=== PATIENT | male | born 1955 | race Caucasian/White ===

== ENCOUNTER 2017-03-13 10:29 | Emergency (ER) | payer OTHER ==
[~2017-03-13] VITALS: Ht 182.9 cm; Wt 106.8 kg
[~2017-03-13 10:29] MED LIST: AMLO10TA3 PO; ASPI-973 PO; ATOR10TA66 PO; CHOL100043 PO; CIPR-231 PO; CLIN-78 PO; DOXY100C2 PO; FLUO20CA25 PO; FUR20 PO; FURO40TA4 PO; LOSA100T29 PO; METO25TA6 PO; OMEP20CA11 PO; ONDA4TAB9 PO; TAMS0.4C98 PO; insulin pump
[2017-03-13 11:01] VITALS: BP 162/84; PULSE 107; RESP 15; O2SAT 99
[2017-03-13 11:47] LABS: BASOPHILS % (AUTO) 0.2 % (0-3); EOSINOPHILS % (AUTO) 0.5 % (0-5); MONOCYTES % (AUTO) 12.5 % (4-12); Mean Corpuscular Hemoglobin 29.1 pg (27.0-35.0); Mean Corpuscular Volume 85.7 fL (81-100); NEUTROPHILS % (AUTO) 79.2 % (40-74); Platelet Count 261 bil/L (150-400)
--- NOTE | 2017-03-13 12:08 | ED.REPORT ---
HPI-Abd Pain M 40 and Over Date of Service Mar 13, 2017 ED Provider: Brian Clancy PA-C Lupe 62-year-old male with history of diabetes who presents with a chief complaint of diarrhea. He states that he has had watery diarrhea 5-6 times a day without blood or mucus for approximately 5 days. Associated with vomiting which the patient describes as aching and is typically associated with foul smells. He also reports that his blood sugars have been very unstable. These are typically treated with his insulin pump. He also admits occasional dark red blood at the end of his urine stream. Denies fever, chills, malaise, abdominal pain, chest pain, dyspnea, dysuria, frequency or urgency. He was seen in this department 3 days ago and treated for dehydration, CT revealed a small nonobstructing kidney stone. Rug Cleaner Helper at the [facility] advised him to present to the emergency department, requesting C. difficile and stool cultures. Denies history of smoking. Admits a history of colon cancer treated with a right colectomy in 2006. Nursing Notes Stated Complaint: VOMITING/ DIARRHEA Chief Complaint: Male Abdominal Pain Nursing Notes Reviewed: Yes Allergies: Coded Allergies: pseudoephedrine HCl (Verified Allergy, Unknown, hallucinations, 11/17/16) sulfamethoxazole (Verified Adverse Reaction, Intermediate, increased potassium, 11/17/16) trimethoprim (Verified Adverse Reaction, Intermediate, increased potassium , 11/17/16) Scheduled Amlodipine (Amlodipine) 10 Mg Tablet 10 MG PO HS Aspirin (Aspirin) 81 Mg Tablet 162 MG PO DAILY Atorvastatin Calcium (Atorvastatin Calcium) 10 Mg Tablet 10 MG PO HS Cholecalciferol (Vitamin D3) (Vitamin D) 1,000 Unit Tablet 2,000 UNIT PO DAILY Ciprofloxacin (Cipro) 500 Mg Tablet 500 MG PO BID Clindamycin (Clindamycin) 300 Mg Capsule 300 MG PO QID Clindamycin (Clindamycin) 300 Mg Capsule 300 MG PO QID Doxycycline Hyclate (Doxycycline Hyclate) 100 Mg Capsule 100 MG PO BID Fluoxetine (Fluoxetine) 20 Mg Capsule 40 MG PO DAILY Furosemide (Furosemide) 40 Mg Tablet 60 MG PO MORNING Furosemide (Furosemide) 20 Mg Tab 20 MG PO HS Losartan Potassium (Losartan Potassium) 100 Mg Tablet 100 MG PO HS Metoprolol Tartrate (Metoprolol Tartrate) 25 Mg Tablet 75 MG PO BID Omeprazole (Omeprazole) 20 Mg Capsule.dr 20 MG PO DAILY Tamsulosin (Flomax) 0.4 Mg Capsule 0.4 MG PO HS Scheduled PRN Ondansetron ODT (Zofran ODT) 4 Mg Tablet 4 MG PO Q4H PRN PRN For Nausea Miscellaneous Medications ([insulin pump]) General Time Seen by MD: 11:45 Chief Complaint Diarrhea severe Sudden in Onset?: No Past Medical History Past Medical History Notes: [facility] Past Medical History Colon Cancer in 2006 with Chemo Insulin Dependent Diabetic Osteomyelitis of left foot s/p partial resection [place] 2007 s/p stenting CHF Depression Peripheral neuropathy Past Surgical History Colectomy MTP Joint Resection Left Foot Cardiac stent Family History MGM- DMII Mother - Colon [place]. Father - "small brain anuerysms." Smoking History Never Smoker Social History Lives with . Alcohol Use: "Social" Drug Use: Denies drug use Ambulatory Status Independent Review of Systems Review of Systems Note: Negative unless stated otherwise in history of present illness Physical Exam General: Well appearing, well developed, well nourished, no acute distress. Head: Atraumatic, normocephalic. Eyes: No scleral icterus or injection. No discharge. Vision grossly intact. ENT: Voice clear, hearing grossly intact. Respiratory: Regular rate and rhythm. Breath sounds present, clear to auscultation and equal bilaterally. No respiratory distress. No increased work of breathing, speaks in complete sentences. Cardiovascular: Regular rate and rhythm, without murmur, gallop or rub. No pedal edema. Gastrointestinal: Abdomen flat with mild right lower quadrant tenderness without guarding or rebound. Bowel sounds normoactive. Skin: Warm and dry. Neurological: Grossly nonfocal. Psychological: Alert and oriented. Speech appropriate, linear and logical. Behavior appropriate. Initial Vital Signs Vital Signs (First) Date Time Temp Pulse Resp B/P Pulse Ox O2 Delivery O2 Flow Rate FiO2 03/13/17 11:01 37.3 107 15 162/84 99 Room Air Interpretation & Diagnostics Lab Results Interpretation Result Diagram: 03/13/17 1140 03/13/17 1140 Test 03/13/17 11:40 03/13/17 11:55 White Blood Count 5.9th/mm3 (3.8-10.1) Red Blood Count 4.12mil/mm3 (4.40-5.80) Hemoglobin 12.0g/dL (13.8-17.2) Hematocrit 35.3% (41.0-50.0) Mean Corpuscular Volume 85.7fL (81-100) Mean Corpuscular Hemoglobin 29.1pg (27.0-35.0) Mean Corpuscular Hemoglobin Concent 34.0% (32.0-37.0) Red Cell Distribution Width 12.4% (12.3-15.4) Platelet Count 261bil/L (150-400) Neutrophils (%) (Auto) 79.2% (40-74) Lymphocytes (%) (Auto) 7.4% (14-46) Monocytes (%) (Auto) 12.5% (4-12) Eosinophils (%) (Auto) 0.5% (0-5) Basophils (%) (Auto) 0.2% (0-3) Sodium Level 120mEq/L (134-144) Potassium Level 4.3mEq/L (3.5-5.2) Chloride Level 89mEq/L (97-108) Carbon Dioxide Level 14mmol/L (18-29) Blood Urea Nitrogen 44mg/dL (8-27) Creatinine 2.94mg/dL (0.76-1.27) Estimat Glomerular Filtration Rate 23mL/min (>59) Glucose Level 718mg/dL (60-99) Osmolality 310 (275-300) Calcium Level 8.8mg/dL (8.5-10.1) Magnesium Level 1.7mg/dL (1.6-2.6) Total Bilirubin 0.4mg/dL (0.0-1.2) Aspartate Amino Transf (AST/SGOT) 16U/L (0-50) Alanine Aminotransferase (ALT/SGPT) 16U/L (0-44) Alkaline Phosphatase 95U/L (25-160) Total Protein 6.8g/dL (6.4-8.4) Albumin 3.2g/dL (3.4-5.0) Lipase 45U/L (13-60) Hold Wynn Top Tube Received (Received) Ketones Negative (Negative) Urine Color Straw (YELLOW) Urine Appearance Hazy (CLEAR,HAZY) Urine pH 5.5 (5.0-8.0) Urine Specific [place] 1.010 (1.003-1.035) Urine Protein 100mg/dL (NEG,TRACE) Urine Glucose (UA) >1000mg/dL (NEGATIVE) Urine Ketones Negativemg/dL (NEGATIVE) Urine Occult Blood Moderate (NEGATIVE) Urine Nitrite Negative (NEGATIVE) Urine Bilirubin Negative (NEGATIVE) Urine Urobilinogen Normalmg/dL (NORMAL) Urine Leukocyte Esterase Negative (NEGATIVE) Urine RBC 0-2/hpf (0-2) Urine WBC 0-5/hpf (0-5) Urine Epithelial Cells Occasional/hpf (NONE-MOD) Urine Crystals None seen (NONE SEEN) Urine Bacteria None/hpf (NONE-FEW) Urine Hyaline Casts None/lpf (NONE) Urine Granular Casts Occasional (NONE SEEN) Urine Waxy Casts None seen (NONE SEEN) Urine Red Blood Cell Casts None seen (NONE SEEN) Urine White Blood Cell Casts None seen (NONE SEEN) Urine Mucus None seen (None Seen) Urine Trichomonas None seen (NONE SEEN) Urine Yeast None (NONE SEEN) Urinalysis Comment None Urine Culture Reflexed Not indicated Lab Results Interpretation: Estimate GFR 23 which is down from previous estimates in the low 30s. Re-Eval/Medical Decision Med Decision/Clinical Course I discussed this case with Dr. Ramirez who met with and examined the patient. 62-year-old male with a history of left colectomy presents with a chief complaint of watery diarrhea for approximately 5 days. Seen in this department 3 days ago treated for dehydration. Also complains of variable blood sugars. Admits to episodes of dark red blood in his urine, noticed primarily as his stream diminishes. Denies pain Physical examination is reassuring with only mild right lower quadrant tenderness without guarding or rebound. CBC reveals a mild anemia. CMP reveals a critical high glucose of 718 along with elevated creatinine and BUN and estimated GFR is 23. Sodium is low at 120 though corrects to 132 when considering hyperglycemia. Albumin slightly low at 3.2. Ketones are negative. Osmolality is 310. Urinalysis is normal. Stool PCR reveals Campylobacter jejuni infection. CT KUB taken 3 days ago showed a nonobstructing kidney stone. Patient responds well to 1 L of normal saline as well as boluses of insulin from his pump, which over the course of his stay lower his blood glucose level down into the 200s. Patient feels well and wishes to be discharged home. At this point we are reassured regarding HHS, DKA, C. difficile, appendicitis, cholecystitis, pancreatitis. I believe his diarrhea is caused by Campylobacter infection and that he is stable and safe to be discharged home. Provided primary care follow-up instructions as well as emergent return precautions. patient verbalizes understanding and agreement to the plan. Discharge & Departure Primary Impression: Campylobacter diarrhea Additional Impressions: Dehydration Hematuria Acute kidney injury (nontraumatic) Diabetic keto-acidosis HHNC (hyperglycemic hyperosmolar nonketotic coma) Disposition: Home Vital Signs - All Vital Signs Date Time Temp Pulse Resp B/P Pulse Ox O2 Delivery O2 Flow Rate FiO2 03/13/17 16:49 37.2 112 18 143/56 99 Room Air 03/13/17 16:41 37.2 112 18 143/56 99 Room Air 03/13/17 13:59 36.8 100 18 157/73 98 Room Air 03/13/17 11:01 37.3 107 15 162/84 99 Room Air )( All Prior VS Reviewed: Yes Condition: Stable Additional Instructions: Evaluation in the emergency department for diarrhea. History and physical examination are reassuring this is unlikely due to a dangerous condition. Stool cultures indicate infection with Campylobacter jejuni. This should resolve on its own without treatment in a few days. Rest and drink plenty of fluids until your symptoms resolve. Follow up with her primary care provider Not resolved in 4 days. We noted severe hyperglycemia on initial labs. These have responded well to hydration and insulin. At this point we believe you are stable and safe to be discharged home. Please monitor your glucose closely for the next several days and follow up with your primary care provider as soon as possible. Kidney function appears slightly worse than your previous visit. Please follow- up with your recyclable materials collector at the [facility] regarding this. You report a history of painless hematuria. CT scan from your previous visit does not indicate a cause, and urinalysis does not indicate infection. Please address this with your provider at the [facility]. Return to emergency department for any new or worsening symptoms including increasing pain, fever. Referrals: [facility] (PCP) EDSupervising Provider for APC: Wilmer Lazar MD Attending Statement Discussed patient with REYNA Clancy. Was asked to evaluate patient. I evaluated patient independently and agree with plan as above. In brief 62-year-old male presenting with nausea vomiting diarrhea. His labs show sodium of 120 corrected 132. Blood sugar was 700 on arrival. Negative ketones. Osmoles 310. Bicarbonate is 14. Patient felt much better after fluid hydration and insulin. He did not want to be admitted to the hospital. He requests to go home. He will be given a prescription for antiemetics and antidiarrheals with return precautions. copies to: [facility] Brina Clancy PA-C Mar 13, 2017 12:08 Wilmer Lazar MD Mar 13, 2017 15:53
[2017-03-13 12:13] LABS: Magnesium 1.7 mg/dL (1.6-2.6)
[2017-03-13] MEDS ORDERED: 0.9% Sodium Chloride 1,000 ML IV ONE (12:15)
[2017-03-13 12:16] LABS: APPEARANCE,URINE HAZY (CLEAR,HAZY); COLOR,URINE STRAW (YELLOW); OCCULT BLOOD,URINE MODERATE (NEGATIVE); PH,URINE 5.5 (5.0-8.0); UROBILINOGEN,URINE NORMAL (NORMAL)
[2017-03-13 13:59] VITALS: BP 157/73; PULSE 100; RESP 18; O2SAT 98
[2017-03-13 16:41] VITALS: BP 143/56; PULSE 112; RESP 18; O2SAT 99
[2017-03-13 16:49] VITALS: BP 143/56; PULSE 112; RESP 18; O2SAT 99
== END 2017-03-13 16:50 | disposition home or self-care (01) ==
LOC: SED 10:29
DX: A04.5 Campylobacter enteritis (principal); E86.0 Dehydration; E11.29 Type 2 diabetes mellitus with other diabetic kidney complication; E11.00 Type 2 diabetes mellitus with hyperosmolarity without nonketotic hyperglycemic-hyperosmolar coma (NKHHC); R31.9 Hematuria, unspecified; I50.9 Heart failure, unspecified; Z79.82 Long term (current) use of aspirin; Z95.5 Presence of coronary angioplasty implant and graft; Z88.2 Allergy status to sulfonamides; Z88.8 Allergy status to other drugs, medicaments and biological substances
CPT/HCPCS: 80053; 81000; 82009; 82948; 83690; 83735; 83930; 85025; 87507; 96360; 99284; J7030

== ENCOUNTER 2017-03-22 19:02 | Emergency (ER) | payer OTHER ==
[~2017-03-22] VITALS: Ht 182.9 cm; Wt 106.8 kg
[2017-03-22 19:06] VITALS: BP 145/74; PULSE 94; RESP 16; O2SAT 97
--- NOTE | 2017-03-22 19:15 | ED.REPORT ---
HPI-General Illness Date of Service Mar 22, 2017 ED Provider: Shakir Hsu MD Patient is a 62 year old male with a medical history including type 2 diabetes, CHF, [place], and peripheral neuropathy who presents to the ED with an "intense" right-sided headache onset gradually today. The headache is described as "pressure," exacerbated with standing up and lasting for approximately an hour. The patient denies nausea, vomiting, vision change, facial droop, slurred speech , weakness, numbness, or other symptoms. The patient does report a brief episode of vision change two months ago, described as "double vision in one eye. " He reports that this episode lasted "a couple minutes" and completely resolved. The patient is concerned because his mother had an aneurysm. He measured his blood sugar at 62 just after the headache but otherwise denies recent hypoglycemic episodes. The patient has never had similar symptoms in the past. He was seen in the ED approximately one week ago complaining of diarrhea and was diagnosed with Campylobacter jejuni. This is not worse BARRY of life. His symptoms have since resolved without antibiotics. Nursing Notes Stated Complaint: DOUBLE VISION, HEADACHE, DIABETIC Chief Complaint: General Complaint Nursing Notes Reviewed: Yes Allergies: Coded Allergies: pseudoephedrine HCl (Verified Allergy, Unknown, hallucinations, 03/22/17) sulfamethoxazole (Verified Adverse Reaction, Intermediate, increased potassium, 03/22/17) trimethoprim (Verified Adverse Reaction, Intermediate, increased potassium , 03/22/17) Scheduled Amlodipine (Amlodipine) 10 Mg Tablet 10 MG PO HS Aspirin (Aspirin) 81 Mg Tablet 162 MG PO DAILY Atorvastatin Calcium (Atorvastatin Calcium) 10 Mg Tablet 10 MG PO HS Cholecalciferol (Vitamin D3) (Vitamin D) 1,000 Unit Tablet 2,000 UNIT PO DAILY Ciprofloxacin (Cipro) 500 Mg Tablet 500 MG PO BID Clindamycin (Clindamycin) 300 Mg Capsule 300 MG PO QID Clindamycin (Clindamycin) 300 Mg Capsule 300 MG PO QID Doxycycline Hyclate (Doxycycline Hyclate) 100 Mg Capsule 100 MG PO BID Fluoxetine (Fluoxetine) 20 Mg Capsule 40 MG PO DAILY Furosemide (Furosemide) 40 Mg Tablet 60 MG PO MORNING Furosemide (Furosemide) 20 Mg Tab 20 MG PO HS Losartan Potassium (Losartan Potassium) 100 Mg Tablet 100 MG PO HS Metoprolol Tartrate (Metoprolol Tartrate) 25 Mg Tablet 75 MG PO BID Omeprazole (Omeprazole) 20 Mg Capsule.dr 20 MG PO DAILY Tamsulosin (Flomax) 0.4 Mg Capsule 0.4 MG PO HS Scheduled PRN Ondansetron ODT (Zofran ODT) 4 Mg Tablet 4 MG PO Q4H PRN PRN For Nausea Miscellaneous Medications ([insulin pump]) General Time Seen by MD: 19:12 Chief Complaint Headache Hx Obtained From: Patient Arrived By: Walk-in Sudden in Onset?: Yes Onset Occurred: 5 - 8 hours ago Symptom Duration: 1 - 4 hours Location: : Head Quality: Painful Severity: Current: No pain currently Severity: Maximum: Moderate Exacerbated by: Standing up Context Related History: Reports Diabetes mellitus Recent Healthcare: Recent doctor visit Similar Sx Previous: No Past Medical History Past Medical History Notes: [facility] Past Medical History Colon Cancer in 2006 with Chemo Insulin Dependent Diabetic Osteomyelitis of left foot s/p partial resection [place] 2007 s/p stenting CHF Depression Peripheral neuropathy Past Surgical History Colectomy MTP Joint Resection Left Foot Cardiac stent Family History MGM- DMII Mother - Colon [place]. Father - "small brain anuerysms." Smoking History Never Smoker Social History Lives with . Alcohol Use: "Social" Drug Use: Denies drug use Ambulatory Status Independent Review of Systems - Facial droop + Brief episode of vision change two months ago - described as "double vision in one eye." Full Review of Systems Constitutional: Denies: Fever Respiratory: Denies: Non-productive cough, Shortness of breath GI: Denies: Nausea, Vomiting Neurologic: Reports: Headache (Right-sided), Denies: Numbness, Slurred speech, Vision change, Weakness Complete sys rev & neg: except as marked. Physical Exam Vital Signs Vital Signs Date Time Temp Pulse Resp B/P Pulse Ox O2 Delivery O2 Flow Rate FiO2 03/22/17 22:16 81 24 149/74 97 Room Air 03/22/17 19:06 36.5 94 16 145/74 97 Room Air Initial VS: Reviewed Skin: Warm, Dry, No cyanosis Psychiatric: Mood/affect normal, Behavior normal, Normal thought content General/Constitutional: Awake, Alert, No acute distress Head / Eyes: Atraumatic, Normocephalic, Visual acuity NL ENT: Airway patent, Mucous membranes moist Neck: Supple, No meningismus, Full range of motion Respiratory / Chest: Breath sounds NL, Breath sounds = bilat, No respiratory distress Cardiovascular: Heart rate NL, Regular rhythm, Heart sounds NL, No gallop, No murmurs, No rubs Abdomen: Soft, Non-tender, No distention Neurologic: Oriented X3, Speech NL, No motor deficits (5/5 strength all four extremities ), No sensory deficits, CN II - XII intact Focal Weakness: Negative: Pronator drift L, Pronator drift R Cerebellar Dysfunction: Negative: Finger-nose abnl No facial droop Negative Romberg's test Interpretation & Diagnostics URINE DIPSTICK: Bedside Urine Specific [place] * 1.015 Bedside Urine pH * 5 Bedside Urine Leukocyte Esterase * Negative Bedside Urine Nitrite * Negative Bedside Urine Protein * +++ (500) Bedside Urine Glucose * 100mg/dl Bedside Urine Ketones * Negative Bedside Urine Urobilinogen * Normal Bedside Urine Bilirubin * Negative Bedside Urine Occult Blood * ~ 250 Clifford/ml Urine to Lab * Yes Lab Results Interpretation Result Diagram: 03/22/17191403/22/171914 Test 03/22/17 19:15 White Blood Count 11.3th/mm3 (3.8-10.1) Red Blood Count 4.14mil/mm3 (4.40-5.80) Hemoglobin 12.0g/dL (13.8-17.2) Hematocrit 35.1% (41.0-50.0) Mean Corpuscular Volume 84.8fL (81-100) Mean Corpuscular Hemoglobin 29.0pg (27.0-35.0) Mean Corpuscular Hemoglobin Concent 34.2% (32.0-37.0) Red Cell Distribution Width 12.5% (12.3-15.4) Platelet Count 415bil/L (150-400) Neutrophils (%) (Auto) 72.8% (40-74) Lymphocytes (%) (Auto) 13.4% (14-46) Monocytes (%) (Auto) 8.5% (4-12) Eosinophils (%) (Auto) 4.2% (0-5) Basophils (%) (Auto) 0.4% (0-3) Prothrombin Time 10.8sec (8.1-12.5) Prothromb Time International Ratio 1.01ratio Urine Color Yellow (YELLOW) Urine Appearance Clear (CLEAR,HAZY) Urine pH 5.5 (5.0-8.0) Urine Specific [place] 1.025 (1.003-1.035) Urine Protein 300mg/dL (NEG,TRACE) Urine Glucose (UA) 100mg/dL (NEGATIVE) Urine Ketones Negativemg/dL (NEGATIVE) Urine Occult Blood Small (NEGATIVE) Urine Nitrite Negative (NEGATIVE) Urine Bilirubin Negative (NEGATIVE) Urine Urobilinogen Normalmg/dL (NORMAL) Urine Leukocyte Esterase Negative (NEGATIVE) Urine RBC 0-2/hpf (0-2) Urine WBC 0-5/hpf (0-5) Urine Epithelial Cells Few/hpf (NONE-MOD) Urine Crystals None seen (NONE SEEN) Urine Bacteria Few/hpf (NONE-FEW) Urine Hyaline Casts None/lpf (NONE) Urine Granular Casts None seen (NONE SEEN) Urine Waxy Casts None seen (NONE SEEN) Urine Red Blood Cell Casts None seen (NONE SEEN) Urine White Blood Cell Casts None seen (NONE SEEN) Urine Mucus None seen (None Seen) Urine Trichomonas None seen (NONE SEEN) Urine Yeast None (NONE SEEN) Urinalysis Comment None Urine Culture Reflexed Not indicated Sodium Level 136mEq/L (134-144) Potassium Level 3.3mEq/L (3.5-5.2) Chloride Level 98mEq/L (97-108) Carbon Dioxide Level 21mmol/L (18-29) Blood Urea Nitrogen 35mg/dL (8-27) Creatinine 1.95mg/dL (0.76-1.27) Estimat Glomerular Filtration Rate 37mL/min (>59) Glucose Level 92mg/dL (60-99) Calcium Level 9.2mg/dL (8.5-10.1) Magnesium Level 1.5mg/dL (1.6-2.6) Total Bilirubin 0.4mg/dL (0.0-1.2) Aspartate Amino Transf (AST/SGOT) 20U/L (0-50) Alanine Aminotransferase (ALT/SGPT) 22U/L (0-44) Alkaline Phosphatase 115U/L (25-160) Total Protein 7.3g/dL (6.4-8.4) Albumin 3.8g/dL (3.4-5.0) Lipase 45U/L (13-60) Hold Wynn Top Tube Received (Received) CT Head Interpretation IMPRESSION: Mild ethmoid air cell mucosal thickening, right greater than left, no additional source of potential cause of headache is found. Dictated by: Liborio Metzger M.D. on 03/22/2017 at 21:32 Study: Head CT no contrast Interpretation / Wet Read by: Interpret - Radiologist Re-Eval/Medical Decision Med Decision/Clinical Course Patient is a 62 year old male with a medical history including type 2 diabetes, CHF, [place], and peripheral neuropathy who presents to the ED with an "intense" right-sided headache onset gradually today. The headache is described as "pressure," exacerbated with standing up and lasting for approximately an hour. The patient denies nausea, vomiting, vision change, facial droop, slurred speech , weakness, numbness, or other symptoms. The patient does report a brief episode of vision change two months ago, described as "double vision in one eye. " He reports that this episode lasted "a couple minutes" and completely resolved. The patient is concerned because his mother had an aneurysm. He measured his blood sugar at 62 just after the headache but otherwise denies recent hypoglycemic episodes. The patient has never had similar symptoms in the past. He was seen in the ED approximately one week ago complaining of diarrhea and was diagnosed with Campylobacter jejuni. This is not worse BARRY of life. His symptoms have since resolved without antibiotics. Here in the emergency department the patient is afebrile with stable vital signs and in no apparent distress. His neurologic examination is completely unremarkable without any focal findings. LABS: Leukocytosis 11.3 Hematocrit stable at 35.1 Coagulation studies normal BUN 35 Creatinine 1.95 - significantly improved from one week ago Mild hypokalemia with potassium at 3.3 CT head: Mild ethmoid air cell mucosal thickening, right greater than left, no additional source of potential cause of headache is found. Headache not suggestive of presentation of acute intracranial hemorrhage. He has had no trauma. Initial imaging studies are negative. He is headache free upon arrival and remained headache free here in the emergency room. I did consider subarachnoid and discussed with the patient that this could not be definitively ruled out without lumbar puncture. Patient reports feeling reassured by head CT scan and after a discussion of the risks and benefits the patient declines lumbar puncture. He makes an informed decision. I am unconvinced this is reflective of meningitis as he has had no fever and is without meningismus. Cause of the patient's headache remains unclear. I suspect this was tension or migraine-type headache. Discussed return precautions for worsening headache, thunderclap headache, headache associated with neurologic symptoms or any other concerning signs or symptoms. He will follow up with his primary care physician. Also discussed his portal and renal function which is improved from prior. He will follow-up with his primary care doctor for ongoing survey of his kidney function. Prior to discharge follow-up and return precautions were reviewed in detail with the patient who verbalized understanding and agreement with the plan. The patient was discharged in stable condition. Source of Hx: Old records Time of Eval: 21:50 Patient Status: Condition improved Re-Evaluation/Progress Note: Discussed with patient CT and lab results, diagnosis, and plan for discharge. Follow-up and return to the ER instructions given. Patient agrees with plan for care and all questions were addressed. Counseled Regarding: Diagnosis, Lab results, Need for follow-up, When/why to return to ED Discharge & Departure Primary Impression: Headache Headache type: unspecified Headache chronicity pattern: acute headache Intractability: not intractable Qualified Code: R51 - Headache Additional Impressions: Double vision Acute kidney injury Disposition: Home Discharge Condition All VS Reviewed: Yes Condition: Improved Patient Instructions: Acute Headache (ED) Additional Instructions: Thank you for seeking care at the emergency room. You were evaluated today for a headache. Our primary goal today in the ED was to evaluate you for any life-threatening conditions. Your evaluation was reassuring. You should follow-up with your primary doctor in the next week about your kidney function. You should return to the ED immediately if you develop severe headache, recurrent headache, weakness, numbness, blurred vision, fevers, vomiting, cough , shortness of breath, chest pain, lightheadedness, weakness or any other concerning signs or symptoms. Thank you for letting us partake in your care today. [facility] Lisaibvince Attestation Portions of this note were transcribed by Marika Haque. I, Dr. Hsu, personally performed the history, physical exam, and medical decision-making; I reviewed and confirmed the accuracy of the information in the transcribed note. Signed by: Citlaly Thorpe, 03/22/2017, 23:05 copies to: [facility] Shakir Hsu MD Mar 22, 2017 19:15 MARIKA HAQUE Apr 22, 2017 20:39
[2017-03-22] MEDS ORDERED: 0.9% Sodium Chloride 1,000 ML IV ONE (19:16)
[2017-03-22] MEDS ORDERED: Ondansetron 2 mg/mL 2 mL Inj IVPUSH ONE (19:20)
[2017-03-22 19:31] LABS: BASOPHILS % (AUTO) 0.4 % (0-3); EOSINOPHILS % (AUTO) 4.2 % (0-5); MONOCYTES % (AUTO) 8.5 % (4-12); Mean Corpuscular Volume 84.8 fL (81-100); NEUTROPHILS % (AUTO) 72.8 % (40-74); Platelet Count 415 bil/L (150-400)
[2017-03-22 19:53] LABS: APPEARANCE,URINE CLEAR (CLEAR,HAZY); COLOR,URINE YELLOW (YELLOW)
[2017-03-22 19:54] LABS: OCCULT BLOOD,URINE SMALL (NEGATIVE); PH,URINE 5.5 (5.0-8.0); UROBILINOGEN,URINE NORMAL (NORMAL)
[2017-03-22 20:05] LABS: Magnesium 1.5 mg/dL (1.6-2.6)
[2017-03-22 20:22] LABS: INR 1.01 ratio
--- NOTE | 2017-03-22 21:34 | DRSVH ---
PROCEDURE: CT BRAIN WITHOUT CONTRAST ([id number]) INDICATIONS: headache TECHNIQUE: Noncontrast 4.5 mm thick angled axial sections acquired from the foramen magnum to the vertex, with c oronal reformats. COMPARISON: None. FINDINGS: Image quality: Excellent. CSF spaces: Basal cisterns are patent. No extra-axial fluid collections. Ventricles are normal in size and shape. Brain: No midline shift. No intracranial masses or hemorrhage. Naik-white matter interface is norm al. Skull and face: Calvarium and visualized facial bones are intact, without suspicious lesions. Sinuses: Visualized sinuses and mastoids are clear except for mild mucosal thickening involving the ethmoid air cells greater on the right than the left. IMPRESSION: Mild ethmoid air cell mucosal thickening, right greater than left, no additional source of potential cause of headache is found. Dictated by: Liborio Metzger M.D. on 03/22/2017 at 21:32 Approved by: Liborio Metzger M.D. on 03/22/2017 at 21:32
[2017-03-22 22:16] VITALS: BP 149/74; PULSE 81; RESP 24; O2SAT 97
== END 2017-03-22 22:17 | disposition home or self-care (01) ==
LOC: SED 19:02
DX: R51 Headache (principal); N17.9 Acute kidney failure, unspecified; H53.2 Diplopia; I50.9 Heart failure, unspecified; I25.2 Old myocardial infarction; E11.9 Type 2 diabetes mellitus without complications; Z79.82 Long term (current) use of aspirin; Z95.5 Presence of coronary angioplasty implant and graft; Z88.2 Allergy status to sulfonamides; Z88.8 Allergy status to other drugs, medicaments and biological substances
CPT/HCPCS: 36415; 70450; 80053; 81000; 82948; 83690; 83735; 85025; 85610; 96361; 96374; 99285; J2405; J7030

== ENCOUNTER 2017-06-04 12:37 | Emergency (ER) | payer OTHER ==
[~2017-06-04] VITALS: Ht 182.9 cm; Wt 105.0 kg
[2017-06-04 12:51] VITALS: BP 145/75; PULSE 80; RESP 16; O2SAT 99
[2017-06-04] MEDS ORDERED: HYDROmorphone 1 mg/mL Inj IM ONE (13:20)
--- NOTE | 2017-06-04 13:25 | ED.REPORT ---
HPI-Abd Pain M 40 and Over Date of Service Jun 04, 2017 ED Provider: Brian Clancy PA-C Andres is a 62-year-old male with a history of colon cancer, DM, CHF, DC presented with a chief complaint of right groin pain. [facility]. Patient reports a two-month history of insidious onset right groin pain aggravated by lying down, walking around. He can recall no specific injury. Reports normal bowel movements. Denies urinary symptoms, testicular pain, vomiting, diarrhea, melena, hematochezia, fever. Denies a history of appendectomy. Patient has been managing pain with Tylenol. Nursing Notes Stated Complaint: PAIN IN GROIN/[facility] Chief Complaint: Male Abdominal Pain Nursing Notes Reviewed: Yes Allergies: Coded Allergies: pseudoephedrine HCl (Verified Allergy, Unknown, hallucinations, 03/22/17) sulfamethoxazole (Verified Adverse Reaction, Intermediate, increased potassium, 03/22/17) trimethoprim (Verified Adverse Reaction, Intermediate, increased potassium , 03/22/17) Scheduled Amlodipine (Amlodipine) 10 Mg Tablet 10 MG PO HS Aspirin (Aspirin) 81 Mg Tablet 162 MG PO DAILY Atorvastatin Calcium (Atorvastatin Calcium) 10 Mg Tablet 10 MG PO HS Cholecalciferol (Vitamin D3) (Vitamin D) 1,000 Unit Tablet 2,000 UNIT PO DAILY Ciprofloxacin (Cipro) 500 Mg Tablet 500 MG PO BID Clindamycin (Clindamycin) 300 Mg Capsule 300 MG PO QID Clindamycin (Clindamycin) 300 Mg Capsule 300 MG PO QID Doxycycline Hyclate (Doxycycline Hyclate) 100 Mg Capsule 100 MG PO BID Fluoxetine (Fluoxetine) 20 Mg Capsule 40 MG PO DAILY Furosemide (Furosemide) 40 Mg Tablet 60 MG PO MORNING Furosemide (Furosemide) 20 Mg Tab 20 MG PO HS Losartan Potassium (Losartan Potassium) 100 Mg Tablet 100 MG PO HS Metoprolol Tartrate (Metoprolol Tartrate) 25 Mg Tablet 75 MG PO BID Omeprazole (Omeprazole) 20 Mg Capsule.dr 20 MG PO DAILY Tamsulosin (Flomax) 0.4 Mg Capsule 0.4 MG PO HS Scheduled PRN Ondansetron ODT (Zofran ODT) 4 Mg Tablet 4 MG PO Q4H PRN PRN For Nausea oxyCODONE (oxyCODONE) 5 Mg Tablet 5-10 MG PO QID PRN PRN For Pain Miscellaneous Medications ([insulin pump]) General Time Seen by MD: 13:09 Chief Complaint Inguinal pain right Sudden in Onset?: No Past Medical History Past Medical History Notes: [facility] Past Medical History Colon Cancer in 2006 with Chemo Insulin Dependent Diabetic Osteomyelitis of left foot s/p partial resection DC 2007 s/p stenting CHF Depression Peripheral neuropathy Past Surgical History Colectomy MTP Joint Resection Left Foot Cardiac stent Family History MGM- DMII Mother - Colon CA. Father - "small brain anuerysms." Smoking History Never Smoker Social History Lives with . Alcohol Use: "Social" Drug Use: Denies drug use Ambulatory Status Independent Review of Systems Negative unless stated otherwise in history of present illness Physical Exam General: Well appearing, well developed, well nourished, moderate distress. Patient appears quite uncomfortable lying on the gurney. Head: Atraumatic, normocephalic. Eyes: No scleral icterus or injection. No discharge. Vision grossly intact. ENT: Voice clear, hearing grossly intact. Respiratory: No respiratory distress, no increased work of breathing. Speaks in complete sentences. Gastrointestinal: Abdomen normal to inspection, nontender. : Normal uncircumcised male penis without rashes, lesions or discharge. Testicles descended bilaterally, nontender and without masses. Extremely tender to palpation in the right inguinal region. No hernias appreciated. Skin: Warm and dry. Neurological: Grossly nonfocal. Psychological: alert and oriented. Speech appropriate, linear and logical. Behavior appropriate. Initial Vital Signs Vital Signs (First) Date Time Temp Pulse Resp B/P Pulse Ox O2 Delivery O2 Flow Rate FiO2 06/04/17 12:51 37.2 80 16 145/75 99 Room Air Normal Interpretation & Diagnostics Lab Results Interpretation Test 06/04/17 15:36 Hold Urine Received (Received) Re-Eval/Medical Decision Med Decision/Clinical Course 62-year-old male presents with chief complaint of right groin pain, referred by [facility] to rule out hernia. Reports two-month history of steadily worsening right groin pain, by lying down, moving around. Denies testicular pain or other symptoms. Physical examination reveals a extremely uncomfortable-looking patient lying on the gurney. He is very tender to palpation in the right inguinal region, though no masses or hernias appreciated. Penis and testicles are normal to inspection and palpation, nontender. Abdomen is nontender. Vitals are normal. Initiated treatment with 1 mg of IM Dilaudid. I ordered right inguinal ultrasound, which reveals a partially reducible fat-containing right direct inguinal hernia. No bowel is contained in the hernia. Does not appear to be incarcerated or strangulated. I believe appendicitis, testicular torsion, epididymitis, orchitis is unlikely. Discussed this with Dr. Hsu, who recommended pain medication and outpatient follow-up. This [facility]. Discussed this with the patient who is ready to be discharged to home. Advise [id number] analgesia provided small amount of Percocet to supplement with precautions. Provided general surgery referral. Advised regarding primary care follow-up, provided emergency return precautions. Patient verbalized understanding of, and consent to, the plan. Discharge & Departure Primary Impression: Inguinal hernia Obstruction and gangrene presence: without obstruction or gangrene Laterality : unilateral Recurrence: not specified as recurrent Qualified Code: K40.90 - Unilateral inguinal hernia, without obstruction or gangrene, not specified as recurrent Disposition: Home Vital Signs - All Vital Signs Date Time Temp Pulse Resp B/P Pulse Ox O2 Delivery O2 Flow Rate FiO2 06/04/17 17:02 74 16 150/54 97 06/04/17 12:51 37.2 80 16 145/75 99 Room Air )( All Prior VS Reviewed: Yes Condition: Stable Patient Instructions: Inguinal Hernia (ED) Additional Instructions: Evaluation for groin pain in the emergency department includes interview, physical examination ultrasound all of which suggest that you have a small, fat- containing inguinal hernia. No bowel is entrapped. This is a nonemergent condition which can be treated with surgery. I will provide you with referral to a general surgeon, however you will likely have to go through the [facility] for this. Pain is best managed with 1000 mg of acetaminophen every 6 hours. I have written a prescription for a small amount of hydrocodone/acetaminophen 5/325 mg which can be SUBSTITUTED for the Tylenol to treat more severe pain. Do not take them together, and do not drink alcohol or operate a vehicle within 4 hours of taking this medication. [facility] in the [facility] few days to arrange further treatment. Return emergency Department for new or worsening symptoms including increasing pain, bloating, bloody/tarry stools, vomiting. Referrals: Ritchie Cunningham MD EDSupervising Provider for APC: Shakir Hsu MD copies to: Ritchie Cunningham MD; [facility] Brian Clancy PA-C Jun 04, 2017 13:25
[2017-06-04] MEDS ORDERED: OXYC5TAB72 PO (16:42)
--- NOTE | 2017-06-04 16:46 | DRSVH ---
PROCEDURE: US HERNIA INGUINAL INDICATIONS: right groin pain TECHNIQUE: Real-time focused scanning was performed of the inguinal region, with image documentation. COMPARISON: None. FINDINGS: There is a fat containing hernia in the right inguinal region, correlating with area of yumiko n. The hernia neck measures 1.3 cm with Valsalva maneuver. IMPRESSION: Suspect a fat containing right inguinal hernia. Dictated by: Tierney Villa M.D. on 06/04/2017 at 16:42 Approved by: Tierney Villa M.D. on 06/04/2017 at 16:44
[2017-06-04 17:02] VITALS: BP 150/54; PULSE 74; RESP 16; O2SAT 97
== END 2017-06-04 17:03 | disposition home or self-care (01) ==
LOC: SED 12:37
DX: K40.90 Unilateral inguinal hernia, without obstruction or gangrene, not specified as recurrent (principal); E11.9 Type 2 diabetes mellitus without complications; I50.9 Heart failure, unspecified; I25.2 Old myocardial infarction; Z86.79 Personal history of other diseases of the circulatory system; Z85.038 Personal history of other malignant neoplasm of large intestine; Z79.4 Long term (current) use of insulin; Z79.82 Long term (current) use of aspirin; Z88.1 Allergy status to other antibiotic agents; Z88.8 Allergy status to other drugs, medicaments and biological substances
CPT/HCPCS: 76857; 82948; 96372; 99284; J1170